=== PATIENT | female | born 1990 | race Caucasian/White ===

== ENCOUNTER 2023-01-21 21:52 | Emergency (ER) | payer OTHER ==
[~2023-01-21] VITALS: Ht 162.6 cm; Wt 118.2 kg
[2023-01-21 22:13] VITALS: BP 129/78
[2023-01-21 22:27] LABS: BASO # 0.01 K/mm3 (0.02-0.10); EOS # 0.14 K/mm3 (0.04-0.40); EOS % 2.1 % (1.0-5.0); HEMATOCRIT 37.2 % (37.0-47.0); HEMOGLOBIN 11.8 g/dL (12.5-16.0); LYMPH# 2.53 K/mm3 (1.50-4.00); MEAN CELL VOLUME 92 fl (78-100); MEAN CORPUSCULAR HEMOGLOBIN 29 pg (27-31); MEAN CORPUSCULAR HGB CONC 32 g/dL (33-37); MEAN PLATELET VOLUME 10.3 fl (7.4-10.4); MONO # 0.72 K/mm3 (0.20-0.80); NEU # 3.21 K/mm3 (1.40-6.50); PLATELET COUNT 280 K/mm3 (130-400); RED BLOOD COUNT 4.05 M/mm3 (4.10-5.30); RED CELL DISTRIBUTION WIDTH 12.2 % (11.5-14.5); WHITE BLOOD COUNT 6.6 K/mm3 (4.8-10.8)
[2023-01-21 22:34] LABS: ALBUMIN 3.6 g/dL (3.5-5.0)
[2023-01-21 22:36] LABS: CALCIUM 8.8 mg/dL (8.3-10.5)
[2023-01-21 22:37] LABS: TOTAL PROTEIN 6.9 g/dL (6.4-8.3)
[2023-01-21 22:43] LABS: TOTAL BILIRUBIN 0.1 mg/dL (0.2-1.2)
[2023-01-21] MEDS ORDERED: BENZONATATE100 M2 PO (22:50)
[2023-01-21] MEDS ORDERED: ZITHROMAX Z PA250 MG PO (22:50)
== END 2023-01-21 23:03 | disposition home or self-care (01) ==
LOC: ED 21:52
PROVIDERS: Physician Assistant
DX: J06.9 Acute upper respiratory infection, unspecified (principal)

== ENCOUNTER → 2023-03-29 | Outpatient (CLI) | payer OTHER ==
[~2023-03-29] MED LIST: BENZONATATE100 M2 PO; ZITHROMAX Z PA250 MG PO
[2023-03-29 10:12] LABS: BASO # 0.03 K/mm3 (0.02-0.10); EOS # 0.12 K/mm3 (0.04-0.40); EOS % 2.1 % (1.0-5.0); HEMOGLOBIN 13.4 g/dL (12.5-16.0); LYMPH# 2.01 K/mm3 (1.50-4.00); MEAN CELL VOLUME 94 fl (78-100); MEAN CORPUSCULAR HEMOGLOBIN 30 pg (27-31); MEAN CORPUSCULAR HGB CONC 32 g/dL (33-37); MEAN PLATELET VOLUME 10.5 fl (7.4-10.4); MONO # 0.35 K/mm3 (0.20-0.80); NEU # 3.22 K/mm3 (1.40-6.50); PLATELET COUNT 278 K/mm3 (130-400); RED BLOOD COUNT 4.49 M/mm3 (4.10-5.30); RED CELL DISTRIBUTION WIDTH 12.7 % (11.5-14.5); WHITE BLOOD COUNT 5.7 K/mm3 (4.8-10.8)
[2023-03-29 10:19] LABS: ALBUMIN 3.8 g/dL (3.5-5.0)
[2023-03-29 10:20] LABS: CALCIUM 8.8 mg/dL (8.3-10.5)
[2023-03-29 10:21] LABS: TOTAL PROTEIN 6.8 g/dL (6.4-8.3)
[2023-03-29 10:23] LABS: TOTAL BILIRUBIN 0.3 mg/dL (0.2-1.2)
== END ==
LOC: LAB 09:57
PROVIDERS: Nurse Practitioner
DX: Z00.00 Encounter for general adult medical examination without abnormal findings (principal)

== ENCOUNTER → 2024-01-08 | Outpatient (REF) | payer OTHER | LOC: LAB 12:57 | DX: R51.9 Headache, unspecified (principal) ==